=== PATIENT | female | born 1960 | race Caucasian/White ===

== ENCOUNTER → 2019-11-04 10:01 | Outpatient (BNVA) | payer MEDICAID, SELFPAY | PROVIDERS: Family Provider Nurse Practitioner; PCP Nurse Practitioner; Visit Provider Nurse Practitioner | DX: E11.65 Type 2 diabetes mellitus with hyperglycemia (principal); E11.40 Type 2 diabetes mellitus with diabetic neuropathy, unspecified; Z79.4 Long term (current) use of insulin; E55.9 Vitamin D deficiency, unspecified; K21.9 Gastro-esophageal reflux disease without esophagitis; J44.9 Chronic obstructive pulmonary disease, unspecified; J30.2 Other seasonal allergic rhinitis | CPT/HCPCS: 80053; 80061; 81003; 82306; 83036 ==

== ENCOUNTER → 2019-11-05 11:02 | Outpatient (BNVA) | payer MEDICAID, SELFPAY | PROVIDERS: Family Provider Nurse Practitioner; PCP Nurse Practitioner; Visit Provider Nurse Practitioner | DX: J44.9 Chronic obstructive pulmonary disease, unspecified (principal) | CPT/HCPCS: 71046 ==

== ENCOUNTER → 2020-05-27 13:53 | Outpatient (BNVA) | payer MEDICAID, SELFPAY | PROVIDERS: Family Provider Nurse Practitioner; PCP Nurse Practitioner; Visit Provider Nurse Practitioner | DX: E11.65 Type 2 diabetes mellitus with hyperglycemia (principal); Z79.4 Long term (current) use of insulin; E11.40 Type 2 diabetes mellitus with diabetic neuropathy, unspecified | CPT/HCPCS: 80053; 80061; 83036; 84443 ==

== ENCOUNTER → 2020-09-10 12:15 | Outpatient (BNVA) | payer MEDICARE, MEDICAID, SELFPAY | PROVIDERS: Family Provider Nurse Practitioner; PCP Nurse Practitioner; Visit Provider Nurse Practitioner | DX: E11.65 Type 2 diabetes mellitus with hyperglycemia (principal); Z79.4 Long term (current) use of insulin; E55.9 Vitamin D deficiency, unspecified; E11.40 Type 2 diabetes mellitus with diabetic neuropathy, unspecified; J44.9 Chronic obstructive pulmonary disease, unspecified; J30.2 Other seasonal allergic rhinitis; K59.01 Slow transit constipation; K21.9 Gastro-esophageal reflux disease without esophagitis; I63.9 Cerebral infarction, unspecified | CPT/HCPCS: 80053; 80061; 82306; 83036 ==

== ENCOUNTER → 2020-09-29 10:01 | Outpatient (BNVA) | payer MEDICARE, MEDICAID, SELFPAY | PROVIDERS: Family Provider Nurse Practitioner; PCP Nurse Practitioner; Visit Provider Nurse Practitioner | DX: M25.50 Pain in unspecified joint (principal) | CPT/HCPCS: 73030; 73562 ==

== ENCOUNTER → 2020-10-13 10:39 | Outpatient (BNVA) | payer MEDICARE, MEDICAID, SELFPAY | PROVIDERS: Family Provider Nurse Practitioner; PCP Nurse Practitioner; Visit Provider Nurse Practitioner | DX: M47.892 Other spondylosis, cervical region (principal); M47.896 Other spondylosis, lumbar region; M47.894 Other spondylosis, thoracic region; M54.2 Cervicalgia; M54.5 Low back pain; M54.6 Pain in thoracic spine | CPT/HCPCS: 72040; 72072; 72100 ==

== ENCOUNTER → 2020-11-12 08:04 | Outpatient (BNVA) | payer MEDICARE, MEDICAID, SELFPAY | PROVIDERS: Family Provider Nurse Practitioner; PCP Nurse Practitioner; Visit Provider Nurse Practitioner | DX: E55.9 Vitamin D deficiency, unspecified (principal); E11.65 Type 2 diabetes mellitus with hyperglycemia; Z79.4 Long term (current) use of insulin; I10 Essential (primary) hypertension | CPT/HCPCS: 80053; 82306; 83036; 84443 ==

== ENCOUNTER → 2020-11-15 09:35 | Outpatient (BNVA) | payer MEDICARE, MEDICAID, SELFPAY | PROVIDERS: Family Provider Nurse Practitioner; PCP Nurse Practitioner; Visit Provider Nurse Practitioner | DX: E11.65 Type 2 diabetes mellitus with hyperglycemia (principal); Z79.4 Long term (current) use of insulin; I63.9 Cerebral infarction, unspecified; E55.9 Vitamin D deficiency, unspecified; J30.1 Allergic rhinitis due to pollen; K59.01 Slow transit constipation; K21.9 Gastro-esophageal reflux disease without esophagitis; E11.40 Type 2 diabetes mellitus with diabetic neuropathy, unspecified; M50.13 Cervical disc disorder with radiculopathy, cervicothoracic region | CPT/HCPCS: 82043 ==

== ENCOUNTER 2020-12-14 11:25 | Observation (INO) | payer MEDICARE, MEDICAID, SELFPAY ==
[2020-12-14] VITALS (9 sets, daily range): BP systolic 132–172; BP diastolic 64–127; PULSE 108–136; RESP 15–22; TEMP 36.7; O2SAT 95–99; BMI 33.2
--- NOTE | 2020-12-14 11:34 | CT_ITS ---
WS: [id number] CT HEAD NONCONTRAST HISTORY: STROKE TECHNIQUE: Contiguous axial imaging performed through the brain in 2.5 mm imaging. Bone and soft tiss ue windows. Sagittal and coronal reformats reviewed. All CT scans at [facility] use at ast one of these dose optimization techniques: automated exposure control; mA and/or kV adjustment pe r patient size (includes targeted exams where dose is matched to clinical indication); or iterative r econstruction. DLP: 829.24 mGy-cm. COMPARISON: None available. No acute intracranial hemorrhage, midline shift or mass effect. No significant atrophy. There is an area of decreased attenuation centered in the LEFT parietal regio n. Mild sparing of the cortex. Small lacunar infarcts in the basal ganglia bilaterally and the in flight crew member al capsules. Ventricles: Normal size with no hydrocephalus. Paranasal sinuses: As visualized are clear. Mastoid air cells: Well pneumatized. Calvarium and scalp: Hyperostosis frontalis interna. No fracture. CT/CT head wo con* [id number] IMPRESSION: 1. No acute intracranial hemorrhage or edema. 2. Focal area of decreased attenuation in the LEFT parietal lobe with sparing of the cortex. Differential includes underlying neoplasm and subacute to remote infarct. Recommend follow-up MRI brain with contrast. 3. Small lacunar infarcts and chronic ischemic disease in the basal ganglia. Notified Dion Gramajo MD at 12/14/2020 11:38 AM.
--- NOTE | 2020-12-14 11:42 | XR_ITS ---
WS: [id number] PORTABLE CHEST HISTORY: reduced breath sounds COMPARISON: 10/13/2020. Moderate elevation of the RIGHT hemidiaphragm. This was also noted on the prior thoracic spine at . Atelectasis is noted at the RIGHT lung base. LEFT lung is clear. No pleural effusion or pneu mothorax. Cardiac size: Normal. Mediastinum/Aorta: Normal mediastinum. No osseous abnormality seen. XR/XR chest 1V portable [id number] IMPRESSION: 1. Moderate elevation of the RIGHT hemidiaphragm. Similar to the prior study o f 10/13/2020 but new since 11/05/2019. 2. No pneumonia.
--- NOTE | 2020-12-14 11:42 | CT_ITS ---
WS: [id number] CT ANGIOGRAM CEREBRAL AND CAROTID ARTERIES HISTORY: stroke like symptoms TECHNIQUE: CT angiogram is performed of the carotid and cerebral arteries. During arterial injection imaging is obtained from the skull vertex to the aortic arch in 1.25 mm imaging. Coronal and sagittal reformats are submitted. Additional multi planar reformats of the carotid and cerebral arteries are submitted, MIP imaging also reviewed. NASCET criteria utilized. All CT scans at [facility] use at least one of these dose optimization techniques: automated exposure control; mA and/or kV ad justment per patient size (includes targeted exams where dose is matched to clinical indication); or iterative reconstruction. CONTRAST: Omnipaque 350; 95 mL IV. DLP: 2151.6 mGy.cm COMPARISON: None available. Carotid Angiogram: Right carotid: Common carotid artery: Arises normally from the innominate artery. No significant plaque or stenosis. Internal carotid artery: Calcified plaque and intimal thickening at the bifurcation. Proximal RIGHT I CA stenosis 42%. No dissection or occlusions. External carotid artery: Patent. Left carotid: Common carotid artery: Proximal common carotid artery is difficult to visualize due to artifact from the injection. No stenosis identified. Internal carotid artery: Small noncalcified plaque and intimal thickening at the bifurcation with no significant stenosis. External carotid artery: Patent. Right vertebral artery: Unremarkable. Left vertebral artery: Unremarkable. Arises normally from the subclavian artery. Subclavian arteries: Small amount of calcified plaque at the proximal LEFT subclavian. RIGHT subclavi an is patent. Upper thorax: Normal. Thyroid gland: Normal. Osseous structures: Degenerative disc disease and osteophytic ridging at C5-6. CEREBRAL ANGIOGRAM: Intracranial vertebral arteries: Normal with no significant atherosclerosis. Basilar artery: No significant stenosis or occlusion. No aneurysm. Intracranial Internal carotid arteries: Calcified plaque through the cavernous sinuses. No occlusions . Middle cerebral arteries: Normal. Anterior cerebral arteries and ACOM: Normal. Posterior cerebral arteries and PCOM's: Posterior cerebral arteries are patent. Small caliber posteri or communicating arteries. Dural venous sinuses are normally enhancing. Mastoid air cells: Normal. Paranasal sinuses: Normal. Calvarium: Hyperostosis frontalis interna. CT/CT angio headneck* [id number] IMPRESSION: 1. No high-grade carotid artery stenosis. 2. RIGHT ICA stenosis 42%. 3. Mild atherosclerosis of the intracranial carotid arteries.
--- NOTE | 2020-12-14 11:44 | ECG_ITS ---
[facility] Test Date: 2020-12-14 Pat Name: Arabella Henry Department: Room: Gender: Female Installer: : 1960 Requested By: Dion Gramajo Order Number: [id number] Sasha MD: Yael Han M.D. Measurements Intervals [place] Rate: 105 P: 33 ND: 152 QRS: 98 QRSD: 88 T: 25 QT: 335 QTc: 443 Interpretive Statements SINUS TACHYCARDIA BORDERLINE RIGHT AXIS DEVIATION [QRS AXIS > 90] Compared to ECG 03/12/2018 09:12:35 Sinus rhythm no longer present Electronically Signed On 12-14-2020 17:46:58 [employer] by Yael Han M.D. [id number]
[2020-12-14 11:52] LABS: Glucose Point of Care 332 mg/dL (70-110)
--- NOTE | 2020-12-14 11:55 | W.ED.NEUROSD ---
HPI - Neuro Symptoms/Deficit General: Chief Complaint: Neuro Symptoms/Deficit Stated Complaint: STROKE LIKE SYMPTOMS Time Seen by Provider: 12/14/20 11:33 History of Present Illness: HPI Narrative: The patient is a 60-year-old female with past medical history stroke last year, diabetes, COPD hypertension. She comes to the ER after waking around 9 AM complaining of confusion, headache, vomiting and she is having trouble finding her words with her confusion. She says also she had mild left arm weakness during that time. Her stroke last year left her with a mild right-sided weakness. 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 Unknown time of onset. She cannot remember when she went to bed or if she went to bathroom through the night. She woke with the symptoms. On arrival her NIH stroke scale is 3. On my exam her power is full in all extremities and there is no facial droop. She has confusion and some slurred speech/dysarthria Onset (ago): unknown Location: speech and left arm Quality: weak Associated symptoms: Reports weakness; Deny chest pain, cough, headache(s), nausea, short of breath or vomiting Review of Systems General: Reports: 10 or more systems reviewed and unremarkable except in HPI and below Const: Denies: fatigue Eyes: Denies: change in vision, blurry vision or eye redness ENMT: Denies: throat pain, swelling of lips/tongue, ear or mastoid pain or nasal congestion Card: Denies: chest pain Resp: Denies: dyspnea, productive cough or non-productive cough GI: Denies: nausea or vomiting : Denies: flank pain, difficulty voiding, urinary frequency or urinary urgency Musc: Denies: neck pain, back pain, extremity pain, joint pain, joint redness, limited range of motion or muscle weakness Skin/Breast: Denies: rash, pruritus, erythema, skin pain or skin tenderness Neuro: Denies: headache(s), numbness in extremities, weakness in extremities, sensory changes, difficulty walking, dizziness, confusion or Slurred speech present Psych: Denies: anxiety or depression Endo: Denies: polyuria All/Imm: Denies: urticaria, throat swelling or tongue swelling PFSH ED PFSH: Medical History Cervical disc disorder with radiculopathy, cervicothoracic region Controlled diabetes mellitus with hyperglycemia, with long-term current use of insulin CVA (cerebral vascular accident) April 22, 2020 Diabetes mellitus with neuropathy GERD (gastroesophageal reflux disease) HTN (hypertension) Unspecified osteoarthritis, unspecified site Vitamin D deficiency, unspecified Surgical History H/O: hysterectomy Without BSO Hx of colonoscopy 05/22/2018 Hx of endoscopy 05/22/2018 Family History Father Heart attack Denies family history of Bleeding disorder Social History Smoking and tobacco status: former smoker Second hand smoke exposure: No Smoking risk assessment/counseling performed?: No Alcohol intake: never Desire information about alcohol rehabilitation?: No Counseling given: No Desire information about substance/drug rehabilitation?: No Counseling given: No Adopted: No Caregiver/support person: No Lives independently: Yes Household members: other Housing: House Marital status: Single service: No Current occupational status: disabled Pets and animals: No History of recent travel: No Current gender identity: Female Physical Exam Const: COMMON NORMALS: no acute distress, average body habitus, patient oriented x3, no limitations, alert and well nourished GENERAL APPEARANCE: cooperative, well developed, in distress and anxious ORIENTATION/CONSCIOUSNESS: Yes awake, Yes oriented to person, Yes oriented to place and Yes confused HENMT: COMMON NORMALS: normocephalic, external ears normal and Normal external nose present HEAD & SCALP: normal to inspection and normocephalic NOSE: Normal external nose present EXTERNAL EAR: Yes external ears normal MOUTH: Normal oral and palatal mucosa present THROAT: posterior oropharynx normal Eye: COMMON NORMALS: Equal, round and reactive pupils present and EOMs intact bilaterally GENERAL EYE: appearance normal, both eyes and all related structures PUPIL: Yes Equal, round and reactive pupils present Neck/C-Spine: COMMON NORMALS: full ROM, no lymphadenopathy, no meningeal signs and no JVD GENERAL: Yes normal visual inspection Lymph: LYMPHATIC: no lymphadenopathy noted Chest: COMMONS NORMALS: normal inspection of the chest and normal palpation of entire chest wall Resp: COMMON NORMALS: normal respiratory effort, No retractions, No use of accessory muscles, clear to auscultation bilaterally and percussion normal EFFORT & INSPECTION: Yes able to speak in complete sentences AUSCULTATION: clear to auscultation bilaterally PERCUSSION: percussion normal Cardio: COMMON NORMALS: no JVD, regular rate, regular rhythm, S1 normal heart sound present, S2 normal heart sound present and Peripheral pulses 2+ throughout RATE: regular rate RHYTHM: regular rhythm HEART SOUNDS: S1 normal heart sound present and S2 normal heart sound present PERIPHERAL PULSES: Peripheral pulses 2+ throughout GI: COMMON NORMALS: Normal to inspection, nondistended, normoactive bowel sounds present, Soft to palpation, non-tender and no masses INSPECTION: Yes normal to inspection PALPATION: Yes Soft to palpation : COMMON NORMALS: Yes no CVA tenderness BLADDER/KIDNEY EXAM: Yes no CVA tenderness Back/Pelvis: COMMON NORMALS: no CVA tenderness, thoracic and lumbar spine normal to inspection, no thoracic nor lumbar tenderness and thoraco-lumbar ROM normal Extremity: COMMON NORMALS: normal to inspection, full ROM, capillary refill normal, no joint enlargement and no pedal edema GENERAL: Yes normal exam except as noted Neuro: COMMON NORMALS: patient oriented x3, CN's II-XII intact bilaterally, moves all extremities, no focal motor deficits and no sensory deficits noted SENSORIUM/ORIENTATION: Yes alert, Yes oriented to person and Yes oriented to place MENINGEAL SIGNS: Yes no meningeal signs MOTOR EXAM: 5/5 motor strength present throughout, Pronator motor function not present and Normal motor muscle tone present throughout Psych: ACTIVITY/MOTOR BEHAVIOR: Yes appropriate eye contact MOOD & AFFECT: Yes anxious Skin: COMMON NORMALS: no rashes or lesions noted GENERAL SKIN EXAM: no rashes or lesions noted Course Vital Signs: Vital signs: Vital Signs Temperature 98.0 F 12/14/20 11:46 Pulse Rate 113 H 12/14/20 14:06 Respiratory Rate 15 12/14/20 13:13 Blood Pressure 169/93 12/14/20 14:06 Pulse Oximetry 95 12/14/20 14:06 MDM - Neuro Symptoms/Deficit MDM Narrative: Medical decision making narrative: The patient came in with strokelike symptoms and hypertension. She was confused and having trouble finding her words. NIH stroke scale on arrival was 3. Her ability to find words slightly worsened after she arrived. She is on Eliquis and unknown onset of symptoms as she woke with the symptoms and cannot recall when she went to bed. Discussed with Dr. Carlin who recommends no acute intervention. We do not have beds here. Discussed with [facility] neurology who recommended transfer for a bed there. Dr. Leon accepts as hospitalist. Lab Data: Labs: Lab Results 12/14/20 12/14/20 12/14/20 Range/Units 11:41 11:41 11:41 WBC 12.4 H (4.0-10.0) 10^3/ uL RBC 5.26 (4.1-5.3) 10^6/u L Hgb 13.8 (11.5-15.3) g/dL Hct 40.1 (37.0-47.0) % MCV 76.2 L (81-99) fL MCH 26.2 L (28.0-34.0) pg MCHC 34.4 (30.0-36.0) g/dL RDW 12.8 (12.1-15.1) % Plt Count 215 (130-400) 10^3/c mm MPV 10.9 H (7.4-10.4) fL Neut % (Auto) 88.8 % Lymph % (Auto) 7.7 % [place] % (Auto) 2.0 % Eos % (Auto) 0.6 % Baso % (Auto) 0.6 % Neut # (Auto) 10.99 H (1.8-7.7) 10^3/u L Lymph # (Auto) 1.0 (0.8-4.8) 10^3/u L [place] # (Auto) 0.3 (0.2-0.9) 10^3/u L Eos # (Auto) 0.1 (0.0-0.8) 10^3/u L Baso # (Auto) 0.1 (0.0-0.1) 10^3/u L Nucleated RBC % (a uto) 0 % Nucleated RBCs # 0.0 /100WBC PT 14.00 (12.1-14.9) SECO NDS INR 1.05 (0.8-1.2) APTT 27.4 (23.9-36.7) SECO NDS Sodium 136 (136-145) mmol/L Potassium 4.9 (3.5-5.1) mmol/L Chloride 96 L (98-107) mmol/L Carbon Dioxide 29 (22-29) mmol/L Anion Gap 15.9 (5-19) BUN 15 (6-20) mg/dL Creatinine 0.6 (0.5-0.9) mg/dL GFR Calculation 102.3 (90-130) mL/min Glucose 320 H (65-115) mg/dL POC Glucose (70-110) mg/dL Calculated Osmolal ity 295 (285-295) mOsm/k g Calcium 9.3 (8.5-10.5) mg/dL Total Bilirubin 0.4 (0.15-1.2) mg/dL AST 21 (0-32) U/L ALT 40 H (0-33) U/L Alkaline Phosphata se 121 H (35-105) IU/L Troponin T Baselin e (0-10) ng/L Troponin T 120 Min [place] (0-10) ng/L Delta Troponin T (0-10) ABS# Total Protein 7.3 (6.6-8.7) g/dL Albumin 4.2 (3.5-5.2) g/dL Globulin 3.1 (1.3-4.6) g/dL Urine Color (Yellow) Urine Appearance (CLEAR) Urine pH (5-7) Ur Specific Gravit y (1.005-1.030) Urine Protein (Negative) Urine Glucose (UA) (Normal) Urine Ketones (Negative) Urine Blood (Negative) Urine Nitrate (Negative) Urine Bilirubin (Negative) Urine Urobilinogen (Negative) mg/dL Ur Leukocyte Carie ase (Negative) Urine RBC (0-2) /hpf Urine WBC (0-5) /hpf Ur Squamous Epith Cells (0-5) /hpf Amorphous Sediment Urine Bacteria (NONE) /hpf Urine Opiates Scre en (Negative) ng/mL Ur Barbiturates Sc reen (Negative) ng/mL Ur Phencyclidine S crn (Negative) ng/mL Ur Amphetamines Sc reen (Negative) ng/mL U Benzodiazepines Scrn (Negative) ng/mL Urine Cocaine Scre en (Negative) ng/mL U Marijuana (THC) Screen (Negative) ng/mL SARS-CoV-2 Ag (Rap id) (Negative) 12/14/20 12/14/20 12/14/20 Range/Units 11:41 11:49 12:43 WBC (4.0-10.0) 10^3/ uL RBC (4.1-5.3) 10^6/u L Hgb (11.5-15.3) g/dL Hct (37.0-47.0) % MCV (81-99) fL MCH (28.0-34.0) pg MCHC (30.0-36.0) g/dL RDW (12.1-15.1) % Plt Count (130-400) 10^3/c mm MPV (7.4-10.4) fL Neut % (Auto) % Lymph % (Auto) % [place] % (Auto) % Eos % (Auto) % Baso % (Auto) % Neut # (Auto) (1.8-7.7) 10^3/u L Lymph # (Auto) (0.8-4.8) 10^3/u L [place] # (Auto) (0.2-0.9) 10^3/u L Eos # (Auto) (0.0-0.8) 10^3/u L Baso # (Auto) (0.0-0.1) 10^3/u L Nucleated RBC % (a uto) % Nucleated RBCs # /100WBC PT (12.1-14.9) SECO NDS INR (0.8-1.2) APTT (23.9-36.7) SECO NDS Sodium (136-145) mmol/L Potassium (3.5-5.1) mmol/L Chloride (98-107) mmol/L Carbon Dioxide (22-29) mmol/L Anion Gap (5-19) BUN (6-20) mg/dL Creatinine (0.5-0.9) mg/dL GFR Calculation (90-130) mL/min Glucose (65-115) mg/dL POC Glucose 332 H (70-110) mg/dL Calculated Osmolal ity (285-295) mOsm/k g Calcium (8.5-10.5) mg/dL Total Bilirubin (0.15-1.2) mg/dL AST (0-32) U/L ALT (0-33) U/L Alkaline Phosphata se (35-105) IU/L Troponin T Baselin e 12 H (0-10) ng/L Troponin T 120 Min [place] (0-10) ng/L Delta Troponin T (0-10) ABS# Total Protein (6.6-8.7) g/dL Albumin (3.5-5.2) g/dL Globulin (1.3-4.6) g/dL Urine Color Yellow (Yellow) Urine Appearance Clear (CLEAR) Urine pH 7 (5-7) Ur Specific Gravit y 1.005 (1.005-1.030) Urine Protein Trace (Negative) Urine Glucose (UA) 4+ H (Normal) Urine Ketones 1+ H (Negative) Urine Blood Neg (Negative) Urine Nitrate Negative (Negative) Urine Bilirubin Neg (Negative) Urine Urobilinogen Norm (Negative) mg/dL Ur Leukocyte Carie ase Negative (Negative) Urine RBC None (0-2) /hpf Urine WBC None (0-5) /hpf Ur Squamous Epith Cells 5-10 H (0-5) /hpf Amorphous Sediment Not Reportable Urine Bacteria Trace (NONE) /hpf Urine Opiates Scre en (Negative) ng/mL Ur Barbiturates Sc reen (Negative) ng/mL Ur Phencyclidine S crn (Negative) ng/mL Ur Amphetamines Sc reen (Negative) ng/mL U Benzodiazepines Scrn (Negative) ng/mL Urine Cocaine Scre en (Negative) ng/mL U Marijuana (THC) Screen (Negative) ng/mL SARS-CoV-2 Ag (Rap id) (Negative) 12/14/20 12/14/20 12/14/20 Range/Units 12:43 13:00 13:13 WBC (4.0-10.0) 10^3/ uL RBC (4.1-5.3) 10^6/u L Hgb (11.5-15.3) g/dL Hct (37.0-47.0) % MCV (81-99) fL MCH (28.0-34.0) pg MCHC (30.0-36.0) g/dL RDW (12.1-15.1) % Plt Count (130-400) 10^3/c mm MPV (7.4-10.4) fL Neut % (Auto) % Lymph % (Auto) % [place] % (Auto) % Eos % (Auto) % Baso % (Auto) % Neut # (Auto) (1.8-7.7) 10^3/u L Lymph # (Auto) (0.8-4.8) 10^3/u L [place] # (Auto) (0.2-0.9) 10^3/u L Eos # (Auto) (0.0-0.8) 10^3/u L Baso # (Auto) (0.0-0.1) 10^3/u L Nucleated RBC % (a uto) % Nucleated RBCs # /100WBC PT (12.1-14.9) SECO NDS INR (0.8-1.2) APTT (23.9-36.7) SECO NDS Sodium (136-145) mmol/L Potassium (3.5-5.1) mmol/L Chloride (98-107) mmol/L Carbon Dioxide (22-29) mmol/L Anion Gap (5-19) BUN (6-20) mg/dL Creatinine (0.5-0.9) mg/dL GFR Calculation (90-130) mL/min Glucose (65-115) mg/dL POC Glucose (70-110) mg/dL Calculated Osmolal ity (285-295) mOsm/k g Calcium (8.5-10.5) mg/dL Total Bilirubin (0.15-1.2) mg/dL AST (0-32) U/L ALT (0-33) U/L Alkaline Phosphata se (35-105) IU/L Troponin T Baselin e (0-10) ng/L Troponin T 120 Min [place] 11.70 H (0-10) ng/L Delta Troponin T -0.30 L (0-10) ABS# Total Protein (6.6-8.7) g/dL Albumin (3.5-5.2) g/dL Globulin (1.3-4.6) g/dL Urine Color (Yellow) Urine Appearance (CLEAR) Urine pH (5-7) Ur Specific Gravit y (1.005-1.030) Urine Protein (Negative) Urine Glucose (UA) (Normal) Urine Ketones (Negative) Urine Blood (Negative) Urine Nitrate (Negative) Urine Bilirubin (Negative) Urine Urobilinogen (Negative) mg/dL Ur Leukocyte Carie ase (Negative) Urine RBC (0-2) /hpf Urine WBC (0-5) /hpf Ur Squamous Epith Cells (0-5) /hpf Amorphous Sediment Urine Bacteria (NONE) /hpf Urine Opiates Scre en Negative (Negative) ng/mL Ur Barbiturates Sc reen Negative (Negative) ng/mL Ur Phencyclidine S crn Negative (Negative) ng/mL Ur Amphetamines Sc reen Negative (Negative) ng/mL U Benzodiazepines Scrn Negative (Negative) ng/mL Urine Cocaine Scre en Negative (Negative) ng/mL U Marijuana (THC) Screen Negative (Negative) ng/mL SARS-CoV-2 Ag (Rap id) Negative (Negative) Discharge Plan Discharge Patient Disposition: Xfer Other Clinical Impression: CVA (cerebral vascular accident) Condition: Stable Referrals: Ha Butcher FNP-C [Primary Care Provider] - Coding Level of Care Code ED Credit Reporter for Tonyg Fwd Exam Comprehensive
[2020-12-14 12:01] LABS: INR 1.05 (0.8-1.2)
[2020-12-14 12:02] LABS: Partial Thromboplastin Time 27.4 SECONDS (23.9-36.7)
[2020-12-14 12:04] LABS: Basophils # 0.1 10^3/uL (0.0-0.1); Basophils % 0.6 %; Eosinophils # 0.1 10^3/uL (0.0-0.8); Eosinophils % 0.6 %; Hematocrit 40.1 % (37.0-47.0); Hemoglobin 13.8 g/dL (11.5-15.3); Lymphocytes % 7.7 %; Mean Corpuscular HGB Conc 34.4 g/dL (30.0-36.0); Mean Corpuscular Hemoglobin 26.2 pg (28.0-34.0); Mean Corpuscular Volume 76.2 fL (81-99); Mean Platelet Volume 10.9 fL (7.4-10.4); Monocytes # 0.3 10^3/uL (0.2-0.9); Neutrophils # 10.99 10^3/uL (1.8-7.7); Neutrophils % 88.8 %; Nucleated Red Blood Cells % 0 %; Platelet Count 215 10^3/cmm (130-400); Red Blood Count 5.26 10^6/uL (4.1-5.3); Red Cell Distribution Width 12.8 % (12.1-15.1); White Blood Count 12.4 10^3/uL (4.0-10.0)
[2020-12-14 12:07] LABS: Alanine Aminotransferase 40 U/L (0-33); Albumin Level 4.2 g/dL (3.5-5.2); Alkaline Phosphatase 121 IU/L (35-105); Anion Gap 15.9 (5-19); Aspartate Amino Transferase 21 U/L (0-32); Blood Urea Nitrogen 15 mg/dL (6-20); Calcium 9.3 mg/dL (8.5-10.5); Carbon Dioxide 29 mmol/L (22-29); Chloride 96 mmol/L (98-107); Globulin 3.1 g/dL (1.3-4.6); Glomerular Filtration Rate 102.3 mL/min (90-130); Glucose 320 mg/dL (65-115); Osmolality Calculated 295 mOsm/kg (285-295); Potassium 4.9 mmol/L (3.5-5.1); Sodium 136 mmol/L (136-145); Total Bilirubin 0.4 mg/dL (0.15-1.2); Total Protein 7.3 g/dL (6.6-8.7)
[2020-12-14 12:08] LABS: Troponin(5th) Baseline 12 ng/L (0-10)
--- NOTE | 2020-12-14 12:17 | PC.NURSE ---
pt not in room. pt to CT scan by stretcher with tech
[2020-12-14] MEDS: iohexol 350 mg/mL 100 mL Btl IV (12:22)
[2020-12-14 13:16] LABS: Add Urine Microscopic? YES; Bilirubin Urine Neg (Negative); Blood Urine Neg (Negative); Glucose Urine UA 4+ (Normal); Ketones Urine 1+ (Negative); Leukocyte Esterase Urine Negative (Negative); Nitrate Urine Negative (Negative); Protein Urine Trace (Negative); Specific Gravity, Urine 1.005 (1.005-1.030); Urine Appearance Clear (CLEAR); Urine Color Yellow (Yellow); Urobilinogen Urine Norm (Negative); pH Urine 7 (5-7)
[2020-12-14 13:17] LABS: Bacteria Urine TRACE /hpf
[2020-12-14 13:18] LABS: Add Urine Culture? No; Amphetamines Screen Urine Negative (Negative); Barbiturates Screen Urine Negative (Negative); Benzodiazepines Screen Urine Negative (Negative); Cocaine Screen Urine Negative (Negative); Opiate Screen Urine Negative (Negative); PCP Screen Urine Negative (Negative); THC Screen Urine Negative (Negative)
[2020-12-14 14:38] LABS: SARS Covid-2 Antigen Negative (Negative)
--- NOTE | 2020-12-14 16:35 | ED_ITS ---
HPI - Neuro Symptoms/Deficit General: Chief Complaint: Neuro Symptoms/Deficit Stated Complaint: STROKE LIKE SYMPTOMS Time Seen by Provider: 12/14/20 11:33 History of Present Illness: HPI Narrative: The patient is a 60-year-old female with past medical history of stroke last year with residual right-sided weakness. She comes to the ER complaining she woke up this morning at approximately 9 AM with dizziness and left arm tingling and weakness. She says she is having trouble finding words Location: speech and left arm Quality: weak PFSH ED PFSH: Medical History Cervical disc disorder with radiculopathy, cervicothoracic region Controlled diabetes mellitus with hyperglycemia, with long-term current use of insulin CVA (cerebral vascular accident) April 22, 2020 Diabetes mellitus with neuropathy GERD (gastroesophageal reflux disease) HTN (hypertension) Unspecified osteoarthritis, unspecified site Vitamin D deficiency, unspecified Surgical History H/O: hysterectomy Without BSO Hx of colonoscopy 05/22/2018 Hx of endoscopy 05/22/2018 Family History Father Heart attack Denies family history of Bleeding disorder Social History Smoking and tobacco status: former smoker Second hand smoke exposure: No Smoking risk assessment/counseling performed?: No Alcohol intake: never Desire information about alcohol rehabilitation?: No Counseling given: No Desire information about substance/drug rehabilitation?: No Counseling given: No Adopted: No Caregiver/support person: No Lives independently: Yes Household members: other Housing: House Marital status: Single service: No Current occupational status: disabled Pets and animals: No History of recent travel: No Current gender identity: Female Course Vital Signs: Vital signs: Vital Signs Temperature 98.0 F 12/14/20 11:46 Pulse Rate 108 H 12/14/20 15:28 Respiratory Rate 22 H 12/14/20 15:28 Blood Pressure 172/86 12/14/20 15:28 Pulse Oximetry 95 12/14/20 15:28 MDM - Neuro Symptoms/Deficit Lab Data: Labs: Lab Results 12/14/20 12/14/20 12/14/20 Range/Units 11:41 11:41 11:41 WBC 12.4 H (4.0-10.0) 10^3/ uL RBC 5.26 (4.1-5.3) 10^6/u L Hgb 13.8 (11.5-15.3) g/dL Hct 40.1 (37.0-47.0) % MCV 76.2 L (81-99) fL MCH 26.2 L (28.0-34.0) pg MCHC 34.4 (30.0-36.0) g/dL RDW 12.8 (12.1-15.1) % Plt Count 215 (130-400) 10^3/c mm MPV 10.9 H (7.4-10.4) fL Neut % (Auto) 88.8 % Lymph % (Auto) 7.7 % Mcdonough % (Auto) 2.0 % Eos % (Auto) 0.6 % Baso % (Auto) 0.6 % Neut # (Auto) 10.99 H (1.8-7.7) 10^3/u L Lymph # (Auto) 1.0 (0.8-4.8) 10^3/u L Mcdonough # (Auto) 0.3 (0.2-0.9) 10^3/u L Eos # (Auto) 0.1 (0.0-0.8) 10^3/u L Baso # (Auto) 0.1 (0.0-0.1) 10^3/u L Nucleated RBC % (a uto) 0 % Nucleated RBCs # 0.0 /100WBC PT 14.00 (12.1-14.9) SECO NDS INR 1.05 (0.8-1.2) APTT 27.4 (23.9-36.7) SECO NDS Sodium 136 (136-145) mmol/L Potassium 4.9 (3.5-5.1) mmol/L Chloride 96 L (98-107) mmol/L Carbon Dioxide 29 (22-29) mmol/L Anion Gap 15.9 (5-19) BUN 15 (6-20) mg/dL Creatinine 0.6 (0.5-0.9) mg/dL GFR Calculation 102.3 (90-130) mL/min Glucose 320 H (65-115) mg/dL POC Glucose (70-110) mg/dL Calculated Osmolal ity 295 (285-295) mOsm/k g Calcium 9.3 (8.5-10.5) mg/dL Total Bilirubin 0.4 (0.15-1.2) mg/dL AST 21 (0-32) U/L ALT 40 H (0-33) U/L Alkaline Phosphata se 121 H (35-105) IU/L Troponin T Baselin e (0-10) ng/L Troponin T 120 Min osage (0-10) ng/L Delta Troponin T (0-10) ABS# Total Protein 7.3 (6.6-8.7) g/dL Albumin 4.2 (3.5-5.2) g/dL Globulin 3.1 (1.3-4.6) g/dL Urine Color (Yellow) Urine Appearance (CLEAR) Urine pH (5-7) Ur Specific Gravit y (1.005-1.030) Urine Protein (Negative) Urine Glucose (UA) (Normal) Urine Ketones (Negative) Urine Blood (Negative) Urine Nitrate (Negative) Urine Bilirubin (Negative) Urine Urobilinogen (Negative) mg/dL Ur Leukocyte Carie ase (Negative) Urine RBC (0-2) /hpf Urine WBC (0-5) /hpf Ur Squamous Epith Cells (0-5) /hpf Amorphous Sediment Urine Bacteria (NONE) /hpf Urine Opiates Scre en (Negative) ng/mL Ur Barbiturates Sc reen (Negative) ng/mL Ur Phencyclidine S crn (Negative) ng/mL Ur Amphetamines Sc reen (Negative) ng/mL U Benzodiazepines Scrn (Negative) ng/mL Urine Cocaine Scre en (Negative) ng/mL U Marijuana (THC) Screen (Negative) ng/mL SARS-CoV-2 Ag (Rap id) (Negative) 12/14/20 12/14/20 12/14/20 Range/Units 11:41 11:49 12:43 WBC (4.0-10.0) 10^3/ uL RBC (4.1-5.3) 10^6/u L Hgb (11.5-15.3) g/dL Hct (37.0-47.0) % MCV (81-99) fL MCH (28.0-34.0) pg MCHC (30.0-36.0) g/dL RDW (12.1-15.1) % Plt Count (130-400) 10^3/c mm MPV (7.4-10.4) fL Neut % (Auto) % Lymph % (Auto) % Mcdonough % (Auto) % Eos % (Auto) % Baso % (Auto) % Neut # (Auto) (1.8-7.7) 10^3/u L Lymph # (Auto) (0.8-4.8) 10^3/u L Mcdonough # (Auto) (0.2-0.9) 10^3/u L Eos # (Auto) (0.0-0.8) 10^3/u L Baso # (Auto) (0.0-0.1) 10^3/u L Nucleated RBC % (a uto) % Nucleated RBCs # /100WBC PT (12.1-14.9) SECO NDS INR (0.8-1.2) APTT (23.9-36.7) SECO NDS Sodium (136-145) mmol/L Potassium (3.5-5.1) mmol/L Chloride (98-107) mmol/L Carbon Dioxide (22-29) mmol/L Anion Gap (5-19) BUN (6-20) mg/dL Creatinine (0.5-0.9) mg/dL GFR Calculation (90-130) mL/min Glucose (65-115) mg/dL POC Glucose 332 H (70-110) mg/dL Calculated Osmolal ity (285-295) mOsm/k g Calcium (8.5-10.5) mg/dL Total Bilirubin (0.15-1.2) mg/dL AST (0-32) U/L ALT (0-33) U/L Alkaline Phosphata se (35-105) IU/L Troponin T Baselin e 12 H (0-10) ng/L Troponin T 120 Min osage (0-10) ng/L Delta Troponin T (0-10) ABS# Total Protein (6.6-8.7) g/dL Albumin (3.5-5.2) g/dL Globulin (1.3-4.6) g/dL Urine Color Yellow (Yellow) Urine Appearance Clear (CLEAR) Urine pH 7 (5-7) Ur Specific Gravit y 1.005 (1.005-1.030) Urine Protein Trace (Negative) Urine Glucose (UA) 4+ H (Normal) Urine Ketones 1+ H (Negative) Urine Blood Neg (Negative) Urine Nitrate Negative (Negative) Urine Bilirubin Neg (Negative) Urine Urobilinogen Norm (Negative) mg/dL Ur Leukocyte Carie ase Negative (Negative) Urine RBC None (0-2) /hpf Urine WBC None (0-5) /hpf Ur Squamous Epith Cells 5-10 H (0-5) /hpf Amorphous Sediment Not Reportable Urine Bacteria Trace (NONE) /hpf Urine Opiates Scre en (Negative) ng/mL Ur Barbiturates Sc reen (Negative) ng/mL Ur Phencyclidine S crn (Negative) ng/mL Ur Amphetamines Sc reen (Negative) ng/mL U Benzodiazepines Scrn (Negative) ng/mL Urine Cocaine Scre en (Negative) ng/mL U Marijuana (THC) Screen (Negative) ng/mL SARS-CoV-2 Ag (Rap id) (Negative) 12/14/20 12/14/20 12/14/20 Range/Units 12:43 13:00 13:13 WBC (4.0-10.0) 10^3/ uL RBC (4.1-5.3) 10^6/u L Hgb (11.5-15.3) g/dL Hct (37.0-47.0) % MCV (81-99) fL MCH (28.0-34.0) pg MCHC (30.0-36.0) g/dL RDW (12.1-15.1) % Plt Count (130-400) 10^3/c mm MPV (7.4-10.4) fL Neut % (Auto) % Lymph % (Auto) % Mcdonough % (Auto) % Eos % (Auto) % Baso % (Auto) % Neut # (Auto) (1.8-7.7) 10^3/u L Lymph # (Auto) (0.8-4.8) 10^3/u L Mcdonough # (Auto) (0.2-0.9) 10^3/u L Eos # (Auto) (0.0-0.8) 10^3/u L Baso # (Auto) (0.0-0.1) 10^3/u L Nucleated RBC % (a uto) % Nucleated RBCs # /100WBC PT (12.1-14.9) SECO NDS INR (0.8-1.2) APTT (23.9-36.7) SECO NDS Sodium (136-145) mmol/L Potassium (3.5-5.1) mmol/L Chloride (98-107) mmol/L Carbon Dioxide (22-29) mmol/L Anion Gap (5-19) BUN (6-20) mg/dL Creatinine (0.5-0.9) mg/dL GFR Calculation (90-130) mL/min Glucose (65-115) mg/dL POC Glucose (70-110) mg/dL Calculated Osmolal ity (285-295) mOsm/k g Calcium (8.5-10.5) mg/dL Total Bilirubin (0.15-1.2) mg/dL AST (0-32) U/L ALT (0-33) U/L Alkaline Phosphata se (35-105) IU/L Troponin T Baselin e (0-10) ng/L Troponin T 120 Min osage 11.70 H (0-10) ng/L Delta Troponin T -0.30 L (0-10) ABS# Total Protein (6.6-8.7) g/dL Albumin (3.5-5.2) g/dL Globulin (1.3-4.6) g/dL Urine Color (Yellow) Urine Appearance (CLEAR) Urine pH (5-7) Ur Specific Gravit y (1.005-1.030) Urine Protein (Negative) Urine Glucose (UA) (Normal) Urine Ketones (Negative) Urine Blood (Negative) Urine Nitrate (Negative) Urine Bilirubin (Negative) Urine Urobilinogen (Negative) mg/dL Ur Leukocyte Carie ase (Negative) Urine RBC (0-2) /hpf Urine WBC (0-5) /hpf Ur Squamous Epith Cells (0-5) /hpf Amorphous Sediment Urine Bacteria (NONE) /hpf Urine Opiates Scre en Negative (Negative) ng/mL Ur Barbiturates Sc reen Negative (Negative) ng/mL Ur Phencyclidine S crn Negative (Negative) ng/mL Ur Amphetamines Sc reen Negative (Negative) ng/mL U Benzodiazepines Scrn Negative (Negative) ng/mL Urine Cocaine Scre en Negative (Negative) ng/mL U Marijuana (THC) Screen Negative (Negative) ng/mL SARS-CoV-2 Ag (Rap id) Negative (Negative) Discharge Plan Discharge Patient Disposition: Xfer Other Clinical Impression: CVA (cerebral vascular accident) Condition: Stable Referrals: Ha Butcher FNP-C [Primary Care Provider] - Coding Level of Care Code ED 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
--- NOTE | 2020-12-14 17:36 | P.HP_ITS ---
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 The patient woke up this morning with the symptoms. Improved in the emergency room. The patient has significant expressive aphasia during my evaluation. I collected the information from her partly, from ER physician, and in conversation with her son Jules on the phone. According to him the patient did have difficulties with finding words after her third stroke which happened last summer. However this currently seems to be more severe. The patient has a lot of difficulties explaining her symptoms and chain of events. According to her she feels better now. She denies any chest pain or palpitations, dizziness or lightheadedness currently. No seizures. No headache. No nausea or vomiting. CT of the head revealed left parietal lobe decreased attenuation consistent with possible neoplasia versus subacute CVA. Dr. Carlin was consulted by ER. According to ER physician she did not recommend any changes to her medications at this point. She recommended stroke work-up. Review of Systems General: Reports: 10 or more systems reviewed and unremarkable except in HPI and below Medications/Allergies Home Medications Medication Instructions Recorded Confirmed Last Taken Type albuterol sulfate 2.5 mg INHALATION Q8H PRN ml 10/31/19 12/14/20 Unknown History meclizine 25 mg tablet 25 mg PO BID 10/31/19 12/14/20 Unknown History apixaban 5 mg tablet 5 mg PO BID 05/27/20 12/14/20 Unknown History divalproex 250 mg tablet,delayed 250 mg PO BID 05/27/20 12/14/20 Unknown History release levetiracetam 1,000 mg tablet 1,000 mg PO BID 05/27/20 12/14/20 Unknown History albuterol sulfate 90 mcg/actuation 2 puff INHALATION QID PRN #8 gm 11/15/20 12/14/20 Unknown Rx aerosol inhaler atorvastatin 40 mg tablet 40 mg PO DAILY #30 tab 11/15/20 12/14/20 Unknown Rx cetirizine 10 mg tablet 10 mg PO DAILY #30 tab 11/15/20 12/14/20 Unknown Rx cholecalciferol (vitamin D3) 125 5,000 unit PO DAILY #30 cap 11/15/20 12/14/20 Unknown Rx mcg (5,000 unit) capsule docusate sodium 100 mg capsule 100 mg PO DAILY #30 cap 11/15/20 12/14/20 Unknown Rx empagliflozin 10 mg tablet 10 mg PO QAM #30 tab 11/15/20 12/14/20 Unknown Rx famotidine 20 mg tablet 20 mg PO BID #60 tab 11/15/20 12/14/20 Unknown Rx glipizide 5 mg tablet, extended 5 mg PO DAILY #30 tab 11/15/20 12/14/20 Unknown Rx release 24 hr icosapent ethyl 1 gram capsule 2 g PO BID #120 cap 11/15/20 12/14/20 Unknown Rx insulin glargine 100 unit/mL (3 70 unit SUBCUT DAILY #15 ml 11/15/20 12/14/20 Unknown Rx mL) subcutaneous pen liraglutide 0.6 mg/0.1 mL (18 mg/3 0.6 mg SUBCUT Q24H #9 ml 11/15/20 12/14/20 Unknown Rx mL) subcutaneous pen injector losartan 25 mg tablet 25 mg PO DAILY #30 tab 11/15/20 12/14/20 Unknown Rx metformin 500 mg tablet,extended 1,000 mg PO BID #120 tab 11/15/20 12/14/20 Unknown Rx release 24hr metoprolol tartrate 25 mg tablet 12.5 mg PO BID #30 tab 11/15/20 12/14/20 Unknown Rx pregabalin 50 mg capsule 50 mg PO Q12H #60 cap 11/15/20 12/14/20 Unknown Rx duloxetine 20 mg PO BID 12/14/20 12/14/20 Unknown History nortriptyline 10 mg PO BEDTIME 12/14/20 12/14/20 Unknown History Allergies Allergy/AdvReac Type Severity Reaction Status Date / Time No Known Allergies Allergy Unverified 10/31/19 11:43 PFSH Acute PFSH: Medical History Cervical disc disorder with radiculopathy, cervicothoracic region Controlled diabetes mellitus with hyperglycemia, with long-term current use of insulin CVA (cerebral vascular accident) April 22, 2020 Diabetes mellitus with neuropathy GERD (gastroesophageal reflux disease) HTN (hypertension) Unspecified osteoarthritis, unspecified site Vitamin D deficiency, unspecified Surgical History H/O: hysterectomy Without BSO Hx of colonoscopy 05/22/2018 Hx of endoscopy 05/22/2018 Family History Father Heart attack Denies family history of Bleeding disorder Social History Smoking and tobacco status: former smoker Second hand smoke exposure: No Smoking risk assessment/counseling performed?: No Alcohol intake: never Desire information about alcohol rehabilitation?: No Counseling given: No Desire information about substance/drug rehabilitation?: No Counseling given: No Adopted: No Caregiver/support person: No Lives independently: Yes Household members: other Housing: House Marital status: Single service: No Current occupational status: disabled Pets and animals: No History of recent travel: No Current gender identity: Female Vitals/I&O/Wt Last Vital Signs Temp 98.0 F 12/14/20 11:46 Pulse 121 H 12/14/20 16:49 Resp 18 12/14/20 16:49 BP 147/82 12/14/20 16:49 Pulse Ox 98 12/14/20 16:49 Weight last 48 hrs Weight 90.492 kg Physical Exam Narrative: EXAM NARRATIVE: The patient is awake alert and oriented. No acute distress. Mood and affect are appropriate. She became a little frustrated by the end of the exam due to difficulties finding words. Skin is warm and dry. Moist mucous brains. Eyes Lewis, extraocular muscles are intact. No facial asymmetry. No dysarthria. However she has expressive aphasia. Neck is supple. No JVD Lungs are clear. No respiratory distress Heart S1, S2, regular Abdomen is soft, obese, nontender, bowel sounds are present Extremities. No cyanosis or calf tenderness bilaterally. Trace edema. Neuro. possible 4 out of 5 weakness in both upper extremities. No tremors. Urinary Catheter Management^: Herring: Cath Placed During This Visit: yes Urinary Catheter Date of Insertion: 12/14/20 Urinary Catheter Time of Insertion: 12:30 Data : 12/14/20 11:41 12/14/20 11:41 Other Labs: Laboratory Results WBC 12.4 10^3/uL (4.0-10.0) H 12/14/20 11:41 RBC 5.26 10^6/uL (4.1-5.3) 12/14/20 11:41 Hgb 13.8 g/dL (11.5-15.3) 12/14/20 11:41 Hct 40.1 % (37.0-47.0) 12/14/20 11:41 MCV 76.2 fL (81-99) L 12/14/20 11:41 MCH 26.2 pg (28.0-34.0) L 12/14/20 11:41 MCHC 34.4 g/dL (30.0-36.0) 12/14/20 11:41 RDW 12.8 % (12.1-15.1) 12/14/20 11:41 Plt Count 215 10^3/cmm (130-400) 12/14/20 11:41 MPV 10.9 fL (7.4-10.4) H 12/14/20 11:41 Neut % (Auto) 88.8 % 12/14/20 11:41 Lymph % (Auto) 7.7 % 12/14/20 11:41 [place] % (Auto) 2.0 % 12/14/20 11:41 Eos % (Auto) 0.6 % 12/14/20 11:41 Baso % (Auto) 0.6 % 12/14/20 11:41 Neut # (Auto) 10.99 10^3/uL (1.8-7.7) H 12/14/20 11:41 Lymph # (Auto) 1.0 10^3/uL (0.8-4.8) 12/14/20 11:41 [place] # (Auto) 0.3 10^3/uL (0.2-0.9) 12/14/20 11:41 Eos # (Auto) 0.1 10^3/uL (0.0-0.8) 12/14/20 11:41 Baso # (Auto) 0.1 10^3/uL (0.0-0.1) 12/14/20 11:41 Nucleated RBC % (auto) 0 % 12/14/20 11:41 Nucleated RBCs # 0.0 /100WBC 12/14/20 11:41 PT 14.00 SECONDS (12.1-14.9) 12/14/20 11:41 INR 1.05 (0.8-1.2) 12/14/20 11:41 APTT 27.4 SECONDS (23.9-36.7) 12/14/20 11:41 Sodium 136 mmol/L (136-145) 12/14/20 11:41 Potassium 4.9 mmol/L (3.5-5.1) 12/14/20 11:41 Chloride 96 mmol/L (98-107) L 12/14/20 11:41 Carbon Dioxide 29 mmol/L (22-29) 12/14/20 11:41 Anion Gap 15.9 (5-19) 12/14/20 11:41 BUN 15 mg/dL (6-20) 12/14/20 11:41 Creatinine 0.6 mg/dL (0.5-0.9) 12/14/20 11:41 GFR Calculation 102.3 mL/min (90-130) 12/14/20 11:41 Glucose 320 mg/dL (65-115) H 12/14/20 11:41 POC Glucose 332 mg/dL (70-110) H 12/14/20 11:49 Calculated Osmolality 295 mOsm/kg (285-295) 12/14/20 11:41 Calcium 9.3 mg/dL (8.5-10.5) 12/14/20 11:41 Total Bilirubin 0.4 mg/dL (0.15-1.2) 12/14/20 11:41 AST 21 U/L (0-32) 12/14/20 11:41 ALT 40 U/L (0-33) H 12/14/20 11:41 Alkaline Phosphatase 121 IU/L (35-105) H 12/14/20 11:41 Troponin T Baseline 12 ng/L (0-10) H 12/14/20 11:41 Troponin T 120 Minute 11.70 ng/L (0-10) H 12/14/20 13:00 Delta Troponin T -0.30 ABS# (0-10) L 12/14/20 13:00 Total Protein 7.3 g/dL (6.6-8.7) 12/14/20 11:41 Albumin 4.2 g/dL (3.5-5.2) 12/14/20 11:41 Globulin 3.1 g/dL (1.3-4.6) 12/14/20 11:41 Urine Color Yellow (Yellow) 12/14/20 12:43 Urine Appearance Clear (CLEAR) 12/14/20 12:43 Urine pH 7 (5-7) 12/14/20 12:43 Ur Specific [place] 1.005 (1.005-1.030) 12/14/20 12:43 Urine Protein Trace (Negative) 12/14/20 12:43 Urine Glucose (UA) 4+ (Normal) H 12/14/20 12:43 Urine Ketones 1+ (Negative) H 12/14/20 12:43 Urine Blood Neg (Negative) 12/14/20 12:43 Urine Nitrate Negative (Negative) 12/14/20 12:43 Urine Bilirubin Neg (Negative) 12/14/20 12:43 Urine Urobilinogen Norm mg/dL (Negative) 12/14/20 12:43 Ur Leukocyte Esterase Negative (Negative) 12/14/20 12:43 Urine RBC None /hpf (0-2) 12/14/20 12:43 Urine WBC None /hpf (0-5) 12/14/20 12:43 Ur Squamous Epith Cells 5-10 /hpf (0-5) H 12/14/20 12:43 Amorphous Sediment Not Reportable 12/14/20 12:43 Urine Bacteria Trace /hpf (NONE) 12/14/20 12:43 Urine Opiates Screen Negative ng/mL (Negative) 12/14/20 12:43 Ur Barbiturates Screen Negative ng/mL (Negative) 12/14/20 12:43 Ur Phencyclidine Scrn Negative ng/mL (Negative) 12/14/20 12:43 Ur Amphetamines Screen Negative ng/mL (Negative) 12/14/20 12:43 U Benzodiazepines Scrn Negative ng/mL (Negative) 12/14/20 12:43 Urine Cocaine Screen Negative ng/mL (Negative) 12/14/20 12:43 U Marijuana (THC) Screen Negative ng/mL (Negative) 12/14/20 12:43 SARS-CoV-2 Ag (Rapid) Negative (Negative) 12/14/20 13:[address] 12/14/20 11:34 IMPRESSION: 1. No acute intracranial hemorrhage or edema. 2. Focal area of decreased attenuation in the LEFT parietal lobe with sparing of the cortex. Differential includes underlying neoplasm and subacute to remote infarct. Recommend follow-up MRI brain with contrast. 3. Small lacunar infarcts and chronic ischemic disease in the basal ganglia. Notified Dion Gramajo MD at 12/14/2020 11:38 AM. Chest X-Ray 12/14/20 11:42 IMPRESSION: 1. Moderate elevation of the RIGHT hemidiaphragm. Similar to the prior study of 10/13/2020 but new since 11/05/2019. 2. No pneumonia. Head/Neck CTA 12/14/20 11:42 IMPRESSION: 1. No high-grade carotid artery stenosis. 2. RIGHT ICA stenosis 42%. 3. Mild atherosclerosis of the intracranial carotid arteries. EKG shows sinus rhythm. No acute ischemic changes. A&P Additional A&P Information 60-year-old female with past medical history of stroke with residual aphasia and right-sided weakness, seizure disorder, diabetes and hypertension, COPD, recent retinal hemorrhage with associated left-sided blindness, currently on Eliquis w ho is presenting with left-sided numbness, weakness, tingling, seemingly worsening problems with speech. Suspected new CVA. The patient will be admitted for stroke work-up. The [facility] is consulted. Will order MRI and echo, fasting lipids. We will continue home medications including her Eliquis, statin, seizure medications. PT OT well. Will wait for additional recommendations from Dr. Carlin. Hypertension. Currently numbers are at acceptable range. Permissive hypertension. As needed labetalol. Diabetes. We will hold her home sulfa medication and Metformin. We will continue the rest of the medications. We will start insulin sliding scale. DVT prophylaxis. She is already on Eliquis. CODE STATUS. Full code according to her son. The plan of care was discussed with the patient and her son. The patient herself has difficulties with speech and explanations and did not have questions. Jules, her son verbalized understanding and agreement with the plan of care. Attestations Medical Necessity Statement*: Based on my assessment of her current symptoms and findings I expect that the patient will spend more than 2 midnights in the hospital to complete the work-up and finalize the treatments. Coding Level of Care Code Acute [employer] Supervisor for Elia Gil
--- NOTE | 2020-12-14 17:44 | ECG_ITS ---
[facility] Test Date: 2020-12-14 Pat Name: Arabella Henry Department: Room: 259 Gender: Female Stave Hewer: : 1960 Requested By: Dion Gramajo Order Number: [id number] Sasha MD: Yael Han M.D. Measurements Intervals [place] Rate: 109 P: 59 NH: 139 QRS: 131 QRSD: 92 T: 27 QT: 340 QTc: 459 Interpretive Statements SINUS TACHYCARDIA WITH FREQUENT VENTRICULAR PREMATURE COMPLEXES POSSIBLE RIGHT VENTRICULAR HYPERTROPHY [SOME/ALL OF: PROMINENT R IN V1, LATE TRANSITION, RAD, RICARDA, SSS] Compared to ECG 12/14/2020 12:05:13 Ventricular premature complex(es) now present Electronically Signed On 12-14-2020 21:48:41 SR TECHNICAL SALES CONSULTANT by Yael Han M.D. [email or web address]
[2020-12-14 18:03] LABS: Troponin 5 6HR 14.53 ng/L (0-10); Troponin 5 6HR Delta 2.53 ng/L (0-12)
[2020-12-14] MEDS: meclizine 25 mg tablet PO (18:18)
[2020-12-14] MEDS: famotidine 20 mg Tablet PO (18:18)
[2020-12-14] MEDS: duloxetine 20 mg Capsule PO (18:18)
[2020-12-14] MEDS: levETIRAcetam 500 mg Tablet 1000 MG PO (18:18)
[2020-12-14 18:29] LABS: Glucose Point of Care 201 mg/dL (70-110)
--- NOTE | 2020-12-14 19:36 | P.CONIM_ITS ---
Providers/Reason For Consult Consulting Physican/Specialty*: Dwight Meyer Reason for Consult*: Stroke Attending Physician: Dwight Turcios Primary Care Provider: FLACA Buenrostro History of Present Illness History of Present Illness A stroke alert was called prior to the arrival of this 60-year-old woman who was reported to have weakness on the right side. That was at 1116 this morning and I proceeded toward the emergency department. I talked with the triage to said that the patient woke up at 930 with her symptoms and so it sounded like she was not a TPA candidate. I came to the hospital and as I arrived, Dr. Dill called and informed me that he did not know time of onset (patient awoke with symptoms) and that she did not have a motor deficit and he was not convinced that she had much change in speech. In addition to that, she was on Eliquis and for all of those reasons (out of the time window and with low NIH stroke scale and on Eliquis) there was no reason to consider TPA. Her NIH stroke scale score was low and therefore embolectomy was not a consideration. The extent of my involvement with this patient was as a TPA candidate for stroke team. I discovered when I opened the medical record that Dr. Meyer was under the impression that I was consulted in the ER and that I recommended stroke work- up and several other things including recommendations about patient management and CT findings which I was not aware of. I have had occasion to review those studies this evening. CT head and CT angiogram: 1. No high-grade carotid artery stenosis. 2. RIGHT ICA stenosis 42%. 3. Mild atherosclerosis of the intracranial carotid arteries. 1. No acute intracranial hemorrhage or edema. 2. Focal area of decreased attenuation in the LEFT parietal lobe with sparing of the cortex. Differential includes underlying neoplasm and subacute to remote infarct. Recommend follow-up MRI brain with contrast. 3. Small lacunar infarcts and chronic ischemic disease in the basal ganglia. Notified Dion Gramajo MD at 12/14/2020 11:38 AM. Dictated By:Chantal Franz DO She says that she was too sick to be brought to [facility] when she had a stroke last summer. She did not come through our emergency department. She describes having had 2 angiograms and an attempt to close PFO but it was too small to close. She was hospitalized at [facility]. She was supposed to see a neurologist at [facility] for follow-up but she could not get a ride there. She has been on Depakote 250 mg twice daily and Keppra 1000 mg twice daily since that hospitalization. She believes that she had 3 seizures during that hospital stay. She had just recently regained the ability to drive. She has been closely followed by home health and it was her home health worker that called the ambulance today. She does not remember going to bed last night but she guesses that she probably went to bed around 6 PM because that usually when she goes to bed. When she woke up this morning she was nauseated and vomited and fell down several times. Since this morning she has had a more difficult time trying to express herself. She is doing better now than she was earlier in the hospitalization. She retired on disability in 2011 after working for the [employer] for about 10 years. Review of Systems Const: Denies: fever(s), chills or change in appetite Eyes: Reports: change in vision (She had a retinal hemorrhage recently) Card: Reports: irregular heart rhythm (As far as she knows she did not have atrial fibrillation or she does not re); Denies: chest pain, palpitations or swelling of feet/ankles Resp: Denies: dyspnea GI: Reports: nausea and vomiting : Denies: flank pain Musc: Reports: back pain (She retired on disability for back pain) Neuro: Reports: headache(s), lack of coordination, difficulty walking, frequent falls and difficulty communicating thoughts Meds/Allergies Home Medications and Allergies Home Medications Medication Instructions Recorded Confirmed Last Taken Type albuterol sulfate 2.5 mg INHALATION Q8H PRN ml 10/31/19 12/14/20 Unknown History meclizine 25 mg tablet 25 mg PO BID 10/31/19 12/14/20 Unknown History apixaban 5 mg tablet 5 mg PO BID 05/27/20 12/14/20 Unknown History divalproex 250 mg tablet,delayed 250 mg PO BID 05/27/20 12/14/20 Unknown History release levetiracetam 1,000 mg tablet 1,000 mg PO BID 05/27/20 12/14/20 Unknown History albuterol sulfate 90 mcg/actuation 2 puff INHALATION QID PRN #8 gm 11/15/20 12/14/20 Unknown Rx aerosol inhaler atorvastatin 40 mg tablet 40 mg PO DAILY #30 tab 11/15/20 12/14/20 Unknown Rx cetirizine 10 mg tablet 10 mg PO DAILY #30 tab 11/15/20 12/14/20 Unknown Rx cholecalciferol (vitamin D3) 125 5,000 unit PO DAILY #30 cap 11/15/20 12/14/20 Unknown Rx mcg (5,000 unit) capsule docusate sodium 100 mg capsule 100 mg PO DAILY #30 cap 11/15/20 12/14/20 Unknown Rx empagliflozin 10 mg tablet 10 mg PO QAM #30 tab 11/15/20 12/14/20 Unknown Rx famotidine 20 mg tablet 20 mg PO BID #60 tab 11/15/20 12/14/20 Unknown Rx glipizide 5 mg tablet, extended 5 mg PO DAILY #30 tab 11/15/20 12/14/20 Unknown Rx release 24 hr icosapent ethyl 1 gram capsule 2 g PO BID #120 cap 11/15/20 12/14/20 Unknown Rx insulin glargine 100 unit/mL (3 70 unit SUBCUT DAILY #15 ml 11/15/20 12/14/20 Unknown Rx mL) subcutaneous pen liraglutide 0.6 mg/0.1 mL (18 mg/3 0.6 mg SUBCUT Q24H #9 ml 11/15/20 12/14/20 Unknown Rx mL) subcutaneous pen injector losartan 25 mg tablet 25 mg PO DAILY #30 tab 11/15/20 12/14/20 Unknown Rx metformin 500 mg tablet,extended 1,000 mg PO BID #120 tab 11/15/20 12/14/20 Unknown Rx release 24hr metoprolol tartrate 25 mg tablet 12.5 mg PO BID #30 tab 11/15/20 12/14/20 Unknown Rx pregabalin 50 mg capsule 50 mg PO Q12H #60 cap 11/15/20 12/14/20 Unknown Rx duloxetine 20 mg PO BID 12/14/20 12/14/20 Unknown History nortriptyline 10 mg PO BEDTIME 12/14/20 12/14/20 Unknown History Allergies Allergy/AdvReac Type Severity Reaction Status Date / Time No Known Allergies Allergy Unverified 10/31/19 11:43 Current Medications Current Medications Generic Name Dose Route Start Last Admin Trade Name Freq PRN Reason Stop Dose Admin Duloxetine HCl 20 mg 12/14/20 18:00 12/14/20 18:18 Duloxetine 20 Mg Capsule PO 20 mg BID CAMELIA Administration Famotidine 20 mg 12/14/20 18:00 12/14/20 18:18 Famotidine 20 Mg Tablet PO 20 mg Q12H CAMELIA Administration Insulin Aspart 0 unit 12/14/20 18:00 12/14/20 18:30 Insulin Aspart 100 Unit/1 Ml SUBCUT 6 unit TIDWM CAMELIA Administration Protocol Levetiracetam 1,000 mg 12/14/20 18:00 12/14/20 18:18 Levetiracetam 500 Mg Tablet PO 1,000 mg BID CAMELIA Administration Meclizine HCl 25 mg 12/14/20 18:00 12/14/20 18:18 Meclizine 25 Mg Tablet PO 25 mg BID CAMELIA Administration PFSH Acute PFSH: Medical History Cervical disc disorder with radiculopathy, cervicothoracic region Controlled diabetes mellitus with hyperglycemia, with long-term current use of insulin CVA (cerebral vascular accident) April 22, 2020 Diabetes mellitus with neuropathy GERD (gastroesophageal reflux disease) HTN (hypertension) Unspecified osteoarthritis, unspecified site Vitamin D deficiency, unspecified Surgical History H/O: hysterectomy Without BSO Hx of colonoscopy 05/22/2018 Hx of endoscopy 05/22/2018 Family History Father Heart attack Denies family history of Bleeding disorder Social History Smoking and tobacco status: former smoker Second hand smoke exposure: No Smoking risk assessment/counseling performed?: No Alcohol intake: never Desire information about alcohol rehabilitation?: No Counseling given: No Desire information about substance/drug rehabilitation?: No Counseling given: No Adopted: No Caregiver/support person: No Lives independently: Yes Household members: other Housing: House Marital status: Single service: No Current occupational status: disabled Pets and animals: No History of recent travel: No Current gender identity: Female Vitals/I&O/Wt Last Vital Signs Temp 98.0 F 12/14/20 19:26 Pulse 118 H 12/14/20 19:26 Resp 18 12/14/20 19:26 BP 132/64 12/14/20 19:26 Pulse Ox 97 12/14/20 19:26 12/14/20 12/14/20 12/14/20 06:59 14:59 22:59 Output Total 150 / 150 Balance -150 / -150 Weight last 48 hrs Weight 199 lb 8 oz Physical Exam Narrative: EXAM NARRATIVE: GENERAL: The patient was [well-nourished] with a[healthy appearance] and [appropriately groomed]. MENTAL STATUS: [Orientation was full to 10 of 10 questions of orientation]. Speech pattern hesitating. She could repeat a complex phrase.. She can follow simple commands but occasionally misses on a complex command. [The affect was euthymic]. CRANIAL NERVES: Visual cai were full to confrontation, direct and consensual. Extraocular movements were full without nystagmus. Both slow pursuit and saccadic eye movements were normal. PERRLA. Face was symmetric at rest and with grimace. Facial sensation intact bilaterally to touch. . Tongue and palate were midline at rest and with protrusion of the tongue and elevation of the palate. Shoulders were symmetric at rest and with shoulder shrug. MOTOR: There was no drift of the extended arms. Fine movements in the hands were rapid and symmetric. No focal weakness. SENSATION: Touch intact in the distal extremities. COORDINATION: [[id number], [id number] were performed smoothly without evidence of tremor or ataxia.] She is unstable with the feet together with her eyes open. DEEP TENDON REFLEXES: Absent at the ankles. GAIT: She was able to stand at the bedside with standby assist. She is mildly unstable in the midline. HEENT: Normocephalic without dysmorphic features. Conjunctivae were not injected and sclerae were nonicteric. Temporal artery pulses were strong bilaterally and the arteries were nontender. NECK: Carotid upstroke was strong bilaterally without bruits. The thyroid was not enlarged and there were no palpable lymph nodes. CHEST: Clear to auscultation. CARDIOVASCULAR: The heart sounds were normal without murmur or gallop. Regular rate and rhythm. Peripheral pulses were 2+ throughout in the distal extremities. EXTREMITIES: There was no edema or cyanosis. The skin was unremarkable. The spine exhibited normal thoracic kyphosis and normal lumbar lordosis without deformities. Urinary Catheter Management^: Herring: Cath Placed During This Visit: yes Reason for Continuing Indwelling Catheter: Accurate Measurement of Urinary Output in Critically Ill Patients Urinary Catheter Date of Insertion: 12/14/20 Urinary Catheter Time of Insertion: 12:30 A&P Assessment and plan (1) Left acute arterial ischemic stroke, MCA (middle cerebral artery): 60-year-old woman with less than a year ago. It sounds like she was diagnosed with patent foramen ovale and taken for closure but the lesion was too small to close. She describes having had to angiogram procedures in an attempt to close her PFO and then she was started on Eliquis. From her history it sounds like she had several seizures at the time of onset of her stroke and that her communication difficulty began at the time of that lesion which is consistent with the posterior branch left middle cerebral artery stroke seen on her CT of the head. Differential diagnosis for the symptoms that she woke with this morning include a new left middle cerebral artery stroke, anterior branch, recrudescence of old stroke symptoms from metabolic disorder, not apparent from emergency department work-up. An occult seizure which is her concern is possible but seems unlikely, as no observed seizure activity was reported by home health and she was not acidotic on arrival (admittedly, several hours after she awoke). I agree with MRI to look for new regions of ischemia and will add MRA to look for intracranial stenosis. I asked the nurse to send for her records from [facility]. I would like to schedule an EEG as an outpatient. If she is doing well tomorrow and her MRI does not show any surprises, I think she can be discharged with no change in her medications and I will see her within 2 weeks of discharge. Status: Acute (2) Patent foramen ovale: Status: Acute (3) Diabetes mellitus with neuropathy: Status: Chronic Qualifiers: Diabetes mellitus type: type 2 Diabetes mellitus group home insulin use: with terminal operations manager use Qualified Code(s): E11.40 - Type 2 diabetes mellitus with diabetic neuropathy, unspecified; Z79.4 - exterminator helper (current) use of insulin Coding Level of Care Code Acute Diesel Truck Technician for Elia Gil Diagnoses Left acute arterial ischemic stroke, MCA (middle cerebral artery) I63.512 Patent foramen ovale Q21.1 Diabetes mellitus with neuropathy E11.40; Z79.4 Diabetes mellitus type: type 2 Diabetes mellitus group home insulin use: with group home use
[2020-12-14] MEDS: apixaban 5 mg Tablet PO (20:46)
[2020-12-14] MEDS: metoprolol tartrate 25 mg Tablet 12.5 MG PO (20:46)
[2020-12-14] MEDS: pregabalin 50 mg Capsule PO (20:48)
[2020-12-14] MEDS: divalproex DR 250 mg Tablet PO (20:48)
[2020-12-14] MEDS: nortriptyline 10 mg Capsule PO (22:45)
[2020-12-15] VITALS (7 sets, daily range): BP systolic 100–137; BP diastolic 55–76; PULSE 86–104; RESP 17–18; TEMP 36.5–36.8; O2SAT 93–96
--- NOTE | 2020-12-15 06:00 | USCV_ITS ---
Arabella Henry Age: 60 Gender: F : 1960 Exam Date: 12/15/2020 07:09 Ordering Phys: Dwight Turcios MD Technologist: Itzel Gonzalez [place] [facility] [place]: cva BP: / HR: 95 Rhythm: Sinus Technical Quality: Adequate MEASUREMENTS (Male / Female) Normal Values 2D ECHO LV Diastolic Diameter PLAX 2.7 cm 4.2 - 5.9 / 3.9 - 5.3 cm LV Systolic Diameter PLAX 1.3 cm LV Chamber Size 2.6 cm IVS Diastolic Thickness 1.6 cm 0.6 - 1.0 / 0.6 - 0.9 cm IVS Systolic Thickness 2.0 cm LVPW Diastolic Thickness 2.0 cm 0.6 - 1.0 / 0.6 - 0.9 cm LVPW Systolic Thickness 2.3 cm RV Chamber Size 2.9 cm LVOT Diameter 2.1 cm LV Ejection Fraction 2D Teich 83.2 % LV Ejection Fraction MOD 2C 54.7 % LV Ejection Fraction 2C AL 52.7 % LA Diameter 3.5 cm LA Width 3.1 cm LA Height 4.2 cm RA Width 2.2 cm RA Height 3.0 cm Aorta at Sinotubular Diameter 2.5 cm M-MODE LV Diastolic Diameter MM 2.7 cm 4.2 - 5.9 / 3.9 - 5.3 cm LV Systolic Diameter MM 1.9 cm LV Ejection Fraction MM Teich 55.8 % IVS Diastolic Thickness MM 1.2 cm 0.6 - 1.0 / 0.6 - 0.9 cm IVS Systolic Thickness MM 1.5 cm LVPW Diastolic Thickness MM 1.5 cm 0.6 - 1.0 / 0.6 - 0.9 cm LVPW Systolic Thickness MM 1.7 cm Aortic Annulus Diameter 2.1 cm LA Ao Ratio MM 1.7 MV E Point Septal Separation 0.8 cm DOPPLER AV Peak Velocity 120.0 cm/s LVOT Peak Velocity 106.0 cm/s AV Area Cont Eq vti 3.2 cm squared AV Area Cont Eq pk 3.0 cm squared MV Area PHT 7.9 cm squared Mitral E to A Ratio 0.7 MV E' Velocity 42.0 cm/s Mitral E to MV E' Ratio 10.3 Mitral E to LV E' Lateral Ratio 11.6 Mitral E to LV E' Septal Ratio 9.4 TR Peak Velocity 185.0 cm/s TR Peak Gradient 13.7 mmHg TV Peak E Velocity 73.0 cm/s Right Atrial Pressure 3.0 mmHg Pulmonary Artery Systolic Pressu 16.7 mmHg PV Peak Velocity 97.0 cm/s RV Acceleration Time 0.2 s RV Ejection Time 0.3 s RV AcT/ET 0.5 FINDINGS Left Ventricle Normal left ventricular size. LV systolic function is normal with EF of 55-60%. No regional wall motion abnormalities are seen. Grade 1 diastolic dysfunction is seen. Right Ventricle The right ventricle is normal in size and function. Right Atrium Not well visualized Left Atrium The left atrium is normal in size. Mitral Valve Structurally normal mitral valve without significant stenosis or prolapse. There is no mitral regurgitation. Aortic Valve Structurally normal aortic valve without significant sclerosis or stenosis. There is no aortic regurgitation. Tricuspid Valve Tricuspid valve is not well visualized. Isufficient TR jet to calculate RVSP Pulmonic Valve Structurally normal pulmonic valve without significant stenosis. There is no pulmonic regurgitation. Pericardium Normal pericardium without effusion. Aorta Normal ascending aorta dimension. CONCLUSIONS LV systolic function is normal with EF of 55-60% Grade 1 diastolic dysfunction No significant valvular heart disease is seen No comparison studies are available Edin Cage MD (Electronically Signed) Final Date: 15 December 2020 11:15 S
[2020-12-15] MEDS: famotidine 20 mg Tablet PO (06:07)
[2020-12-15] MEDS: pregabalin 50 mg Capsule PO (06:10)
[2020-12-15 06:29] LABS: Glucose Point of Care 245 mg/dL (70-110)
[2020-12-15 06:34] LABS: Chol HDL Ratio 2.29 mg/dL (0.0-4.40); Cholesterol 117 mg/dL (0-200); HDL Cholesterol 51 mg/dL (60-100); LDL Cholesterol Calculated 49 mg/dL (50-129); LDL HDL Ratio 0.96 RATIO (0.00-3.22); Triglycerides 84 mg/dL (0-150)
[2020-12-15 06:47] LABS: Estmated Average Glucose 183
--- NOTE | 2020-12-15 09:40 | PC.CHAP ---
Pastoral Care Encounter/Spiritual Assessment Type of Contact [] Declined lineman apprentice visit [] Patient/Family/Request visit [] Outpatient visit [] Follow-up visit [] Physician referral [] Code/Alert [x] Routine visit [] Staff referral [] Actively dying [x] Patient sleeping [] Family support [] [] Out of room [] Palliative care [] [] Receiving care in room [] Pre-surgical visit [] Trauma [] Long length of stay [] ICU visit [] Other: Relational/Emotional Strength [] Patient feels connected with others/family/visitors/staff [] Distress [] Loneliness/isolation [] Abandonment Spirituality of Patient [] Person of Nya [] Attends Anabaptism of their Nya [] Believes in Prayer [] Reads Bible or Jewish materials [] There are Spiritual issues to be addressed Keg Varnisher Interventions [] Prayer [] Active listening [] Non-anxious presence [] Spiritual/emotional support [] Crisis/trauma care [] Spiritual counseling [] Bereavement support [] Provided bereavement packet [] Provided Bible/devotional materials [] Provided toy/stuffed animal, coloring book to patient or family member [] Provided Communion [] Anointing/Emmett [] Salvation [] Completed spiritual assessment [] Other: Impact on Illness or Injury [] Angry [] Fearful [] Anxious [] Often cries [] Exhaustion [] Unable to work [] Unable to attend buddhism [] Unable to walk/stand [] Unable to read [] Unable to drive [] Unable to eat/drink [] Unable to sleep [] Unable to be with family [] Patient intubated [] Other: Summary Time spent with patient
--- NOTE | 2020-12-15 10:00 | PC.NURSE ---
bedside swallow nursing eval Patient swallowed thin liquids with no choking or signs of difficulty. Pills were able to be swallowed whole. Patient had no difficulty with pudding, jello, or applesauce.
[2020-12-15] MEDS: insulin glargine 100 units/1 mL 70 UNIT SUBCUT (10:05)
[2020-12-15] MEDS: divalproex DR 250 mg Tablet PO (10:07)
[2020-12-15] MEDS: docusate sodium 100 mg Capsule PO (10:08)
[2020-12-15] MEDS: meclizine 25 mg tablet PO (10:08)
[2020-12-15] MEDS: cetirizine 10 mg Tablet PO (10:08)
[2020-12-15] MEDS: levETIRAcetam 500 mg Tablet 1000 MG PO (10:08)
[2020-12-15] MEDS: cholecalciferol (vitamin D3) 5,000 unit Tablet 5000 UNIT PO (10:09)
[2020-12-15] MEDS: apixaban 5 mg Tablet PO (10:09)
[2020-12-15] MEDS: atorvastatin 40 mg Tablet PO (10:09)
[2020-12-15] MEDS: metoprolol tartrate 25 mg Tablet 12.5 MG PO (10:09)
[2020-12-15] MEDS: aspirin 81 mg EC Tablet PO (10:14)
[2020-12-15] MEDS: duloxetine 20 mg Capsule PO (10:14)
[2020-12-15 12:39] LABS: Glucose Point of Care 268 mg/dL (70-110)
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
--- NOTE | 2020-12-15 16:44 | PC.NUTR ---
NUTR STROKE CONSULT: Consult received. Pt has discharged <24 hrs. Unable to assess needs or offer education.
== END 2020-12-15 16:18 | disposition home or self-care (01) ==
LOC: ER 16:54 → MEDSURG 17:17
PROVIDERS: Admitting Provider Internal Medicine; Emergency Provider Family Medicine; PCP Nurse Practitioner; Visit Provider Internal Medicine
DX: I63.512 Cerebral infarction due to unspecified occlusion or stenosis of left middle cerebral artery (principal); Q21.1 Atrial septal defect; E11.40 Type 2 diabetes mellitus with diabetic neuropathy, unspecified; Z79.4 Long term (current) use of insulin; E11.9 Type 2 diabetes mellitus without complications; I10 Essential (primary) hypertension; E78.5 Hyperlipidemia, unspecified; Z87.891 Personal history of nicotine dependence; R56.9 Unspecified convulsions
CPT/HCPCS: 36415; 36416; 51702; 70450; 70496; 70498; 71045; 80053; 80061; 80306; 81001; 82962; 83036; 84484; 85025; 85610; 85730; 87426; 92523; 92610; 93005; 93306; 96372; 97165; 97535; 99292; G0378; J1815 ×2; J8597; Q9967

== ENCOUNTER 2020-12-31 08:14 | Outpatient (CLI) | payer MEDICARE, MEDICAID, SELFPAY ==
--- NOTE | 2020-12-31 08:26 | MR_ITS ---
WS: [id number] MRI BRAIN WITH AND WITHOUT CONTRAST HISTORY: CVA COMPARISON: CT head 12/14/2020 TECHNIQUE: Multiplanar imaging performed through the brain with MultiHance 20 ml's IV. No acute infarcts are seen. Duvall-white matter differentiation is well preserved. Again noted is the a david of volume loss in the posterior LEFT parietal lobe. There is surrounding gliosis. No enhancement. This is most likely prior infarct with gliosis. There are additional few small scattered T2 and FLAI R signal hyperintensities which are nonspecific and appropriate for the patient's age. No hemorrhage. No hemorrhage. Ventricles and extra-axial spaces are normal. Clivus and pituitary gland are normal. Visualized posterior fossa and brainstem are also normal. Postcontrast images are negative for masses or vascular malformations. Dural venous sinuses are normal. Paranasal sinuses: Well aerated with no significant disease. Mastoid air cells: Normal. Calvarium and scalp: Normal. MR/MR head wo/w con [id number] IMPRESSION: 1. No acute infarct. 2. Remote infarct with gliosis in the posterior LEFT parietal lobe. 3. Mild chronic microvascular ischemic disease. No mass.
[2020-12-31] MEDS: gadobenate dimeglumine 20 mL vial IV (10:56)
== END 2020-12-31 08:15 | disposition home or self-care (01) ==
LOC: RADSHAW 08:16
PROVIDERS: PCP Nurse Practitioner; Visit Provider Internal Medicine
DX: I63.9 Cerebral infarction, unspecified (principal); I67.82 Cerebral ischemia
CPT/HCPCS: 70553; A9577

== ENCOUNTER → 2021-01-13 07:56 | Outpatient (BNVA) | payer MEDICARE, MEDICAID, SELFPAY | PROVIDERS: PCP Nurse Practitioner; Referring Provider Internal Medicine; Visit Provider Specialist | DX: I69.30 Unspecified sequelae of cerebral infarction (principal); R56.9 Unspecified convulsions; Q21.1 Atrial septal defect; J43.8 Other emphysema; R00.2 Palpitations; Z87.891 Personal history of nicotine dependence | CPT/HCPCS: 99205 ==

== ENCOUNTER → 2021-02-02 08:41 | Outpatient (BNVA) | payer MEDICARE, MEDICAID, SELFPAY | PROVIDERS: PCP Nurse Practitioner; Visit Provider Nurse Practitioner | DX: E11.65 Type 2 diabetes mellitus with hyperglycemia (principal); Z79.4 Long term (current) use of insulin; J43.8 Other emphysema; I10 Essential (primary) hypertension; E55.9 Vitamin D deficiency, unspecified | CPT/HCPCS: 80053; 80061; 82306; 83036; 84443; 85025 ==

== ENCOUNTER → 2021-02-04 09:39 | Outpatient (BNVA) | payer MEDICARE, MEDICAID, SELFPAY | PROVIDERS: PCP Nurse Practitioner; Visit Provider Nurse Practitioner | DX: E11.65 Type 2 diabetes mellitus with hyperglycemia (principal); I63.9 Cerebral infarction, unspecified; E55.9 Vitamin D deficiency, unspecified; J30.1 Allergic rhinitis due to pollen; K59.01 Slow transit constipation; K21.9 Gastro-esophageal reflux disease without esophagitis; E11.40 Type 2 diabetes mellitus with diabetic neuropathy, unspecified; M50.13 Cervical disc disorder with radiculopathy, cervicothoracic region; J43.8 Other emphysema; E03.9 Hypothyroidism, unspecified; R56.9 Unspecified convulsions; Z79.4 Long term (current) use of insulin | CPT/HCPCS: 81000 ==

== ENCOUNTER → 2021-03-30 08:37 | Outpatient (BNVA) | payer MEDICARE, MEDICAID, SELFPAY | PROVIDERS: PCP Nurse Practitioner; Visit Provider Specialist | DX: G40.909 Epilepsy, unspecified, not intractable, without status epilepticus (principal); I69.398 Other sequelae of cerebral infarction; Z87.891 Personal history of nicotine dependence | CPT/HCPCS: 95816 ==

== ENCOUNTER → 2021-04-19 07:44 | Outpatient (BNVA) | payer MEDICARE, MEDICAID, SELFPAY | PROVIDERS: PCP Nurse Practitioner; Visit Provider Specialist | DX: I69.398 Other sequelae of cerebral infarction (principal); G40.909 Epilepsy, unspecified, not intractable, without status epilepticus; Q21.1 Atrial septal defect; I26.92 Saddle embolus of pulmonary artery without acute cor pulmonale; M54.2 Cervicalgia; I10 Essential (primary) hypertension; Z79.01 Long term (current) use of anticoagulants; Z87.891 Personal history of nicotine dependence | CPT/HCPCS: 99215 ==

== ENCOUNTER → 2021-04-25 08:26 | Outpatient (BNVA) | payer MEDICARE, MEDICAID, SELFPAY | PROVIDERS: PCP Nurse Practitioner; Visit Provider Nurse Practitioner | DX: E11.65 Type 2 diabetes mellitus with hyperglycemia (principal); Z79.4 Long term (current) use of insulin; I10 Essential (primary) hypertension; E55.9 Vitamin D deficiency, unspecified | CPT/HCPCS: 80053; 80061; 82306; 83036; 84443; 85025 ==

== ENCOUNTER → 2021-04-27 10:14 | Outpatient (BNVA) | payer MEDICARE, MEDICAID, SELFPAY | PROVIDERS: PCP Nurse Practitioner; Visit Provider Nurse Practitioner | DX: E11.65 Type 2 diabetes mellitus with hyperglycemia (principal); Z79.4 Long term (current) use of insulin; K59.01 Slow transit constipation; E55.9 Vitamin D deficiency, unspecified; J30.1 Allergic rhinitis due to pollen; E03.9 Hypothyroidism, unspecified; K21.9 Gastro-esophageal reflux disease without esophagitis; M50.13 Cervical disc disorder with radiculopathy, cervicothoracic region; I26.92 Saddle embolus of pulmonary artery without acute cor pulmonale; J43.8 Other emphysema; B37.9 Candidiasis, unspecified; E11.40 Type 2 diabetes mellitus with diabetic neuropathy, unspecified | CPT/HCPCS: 81000 ==

== ENCOUNTER 2021-05-04 09:00 | Outpatient (RCR) | payer MEDICARE, MEDICAID, SELFPAY | END 2021-05-28 23:59 | disposition home or self-care (01) | LOC: APT 09:00 | PROVIDERS: PCP Nurse Practitioner; Referring Provider Specialist; Visit Provider Specialist | DX: M54.2 Cervicalgia (principal) | CPT/HCPCS: 97110; 97162 ==

== ENCOUNTER → 2021-05-16 10:46 | Outpatient (BNVA) | payer MEDICARE, MEDICAID, SELFPAY | PROVIDERS: PCP Nurse Practitioner; Visit Provider Specialist | DX: I69.398 Other sequelae of cerebral infarction (principal); G40.909 Epilepsy, unspecified, not intractable, without status epilepticus | CPT/HCPCS: 95816 ==

== ENCOUNTER 2021-05-29 06:00 | Outpatient (RCR) | payer MEDICARE, MEDICAID, SELFPAY | END 2021-06-28 23:59 | disposition home or self-care (01) | LOC: APT 06:00 | PROVIDERS: PCP Nurse Practitioner; Referring Provider Specialist; Visit Provider Specialist | DX: M54.2 Cervicalgia (principal) | CPT/HCPCS: 97110 ==

== ENCOUNTER → 2021-07-18 10:30 | Outpatient (BNVA) | payer MEDICARE, MEDICAID, SELFPAY | PROVIDERS: PCP Nurse Practitioner; Visit Provider Nurse Practitioner | DX: E11.65 Type 2 diabetes mellitus with hyperglycemia (principal); Z79.4 Long term (current) use of insulin; J43.8 Other emphysema; E55.9 Vitamin D deficiency, unspecified; E03.9 Hypothyroidism, unspecified | CPT/HCPCS: 80053; 81000; 83036; 85025 ==

== ENCOUNTER → 2021-09-19 10:16 | Outpatient (BNVA) | payer MEDICARE, MEDICAID, SELFPAY | PROVIDERS: PCP Nurse Practitioner; Visit Provider Specialist | DX: I69.398 Other sequelae of cerebral infarction (principal); G40.909 Epilepsy, unspecified, not intractable, without status epilepticus; E11.65 Type 2 diabetes mellitus with hyperglycemia; Z79.4 Long term (current) use of insulin; Q21.1 Atrial septal defect | CPT/HCPCS: 99213; 99214 ==

== ENCOUNTER → 2021-10-13 10:04 | Outpatient (BNVA) | payer MEDICARE, MEDICAID, SELFPAY | PROVIDERS: PCP Nurse Practitioner; Visit Provider Nurse Practitioner | DX: E11.65 Type 2 diabetes mellitus with hyperglycemia (principal); Z79.4 Long term (current) use of insulin; J43.8 Other emphysema; I26.92 Saddle embolus of pulmonary artery without acute cor pulmonale; J30.1 Allergic rhinitis due to pollen; E55.9 Vitamin D deficiency, unspecified; E03.9 Hypothyroidism, unspecified; E11.40 Type 2 diabetes mellitus with diabetic neuropathy, unspecified | CPT/HCPCS: 80053; 80061; 81000; 82306; 83036; 84443 ==

== ENCOUNTER → 2021-11-10 15:55 | Outpatient (BNVA) | payer MEDICARE, MEDICAID, SELFPAY | PROVIDERS: PCP Nurse Practitioner; Visit Provider Nurse Practitioner | DX: Z20.822 Contact with and (suspected) exposure to COVID-19 (principal); J43.8 Other emphysema; L08.9 Local infection of the skin and subcutaneous tissue, unspecified; I10 Essential (primary) hypertension | CPT/HCPCS: 85025; 87635 ==

== ENCOUNTER 2021-11-19 08:47 | Outpatient (CLI) | payer MEDICARE, MEDICAID, SELFPAY ==
[2021-11-19 08:53] VITALS: BP 128/74; PULSE 71; RESP 20; TEMP 36.7; O2SAT 94; BMI 32.9
[2021-11-19 09:40] VITALS: BP 128/72; PULSE 72; RESP 16; TEMP 36.7; O2SAT 97
[2021-11-19 10:50] VITALS: BP 116/67; PULSE 71; RESP 16; TEMP 36.4; O2SAT 96
== END 2021-11-19 08:48 | disposition home or self-care (01) ==
PROVIDERS: PCP Nurse Practitioner; Visit Provider Nurse Practitioner
DX: U07.1 COVID-19 (principal)
CPT/HCPCS: 96365

== ENCOUNTER → 2022-01-11 11:45 | Outpatient (BNVA) | payer MEDICARE, MEDICAID, SELFPAY | PROVIDERS: PCP Nurse Practitioner; Visit Provider Nurse Practitioner | DX: E55.9 Vitamin D deficiency, unspecified (principal); I10 Essential (primary) hypertension; E11.65 Type 2 diabetes mellitus with hyperglycemia; Z79.4 Long term (current) use of insulin; J43.8 Other emphysema; I26.92 Saddle embolus of pulmonary artery without acute cor pulmonale; J30.1 Allergic rhinitis due to pollen; K59.01 Slow transit constipation; M50.13 Cervical disc disorder with radiculopathy, cervicothoracic region; K21.9 Gastro-esophageal reflux disease without esophagitis; E11.40 Type 2 diabetes mellitus with diabetic neuropathy, unspecified | CPT/HCPCS: 80053; 80061; 81000; 82306; 83036; 84443; 85025 ==